=== PATIENT | male | born 2000 | race Caucasian/White ===

== ENCOUNTER 2025-01-19 06:38 | Emergency (ER) | payer OTHER, SELFPAY ==
[2025-01-19] VITALS (8 sets, daily range): BP systolic 118–159; BP diastolic 72–89; PULSE 56–72; RESP 16; TEMP 36.1–36.9; O2SAT 93–98; BMI 36.1
--- NOTE | 2025-01-19 06:44 | DI.RAD.S_ITS ---
PROCEDURE: XR CHEST 1V INDICATIONS: hemoptysis TECHNIQUE: One view of the chest was acquired. COMPARISON: None. FINDINGS: Surgical changes and devices: None. Lungs and pleura: No pleural effusion or pneumothorax. Bronchial wall thickening. Mediastinum: Mediastinal contours appear normal. Heart size is normal. Bones and chest wall: No suspicious bony lesions. Overlying soft tissues appear unremarkable. IMPRESSION: Bronchial wall thickening which can be seen with inflammatory versus infectious bronchiolitis. No consolidative pneumonia. Dictated by: Lenin Landon M.D. on 01/19/2025 at 8:26 Approved by: Lenin Landon M.D. on 01/19/2025 at 8:27
--- NOTE | 2025-01-19 07:20 | PC.NURSE ---
Pt sitting up in [facility]. Appears in NAD.
--- NOTE | 2025-01-19 07:49 | ED_ITS ---
HPI - URI/Sore Throat General Chief Complaint: Upper Respiratory Symptoms Stated Complaint: Coughing up blood this morning Time Seen by Provider: 01/19/25 06:43 Source: patient Mode of arrival: Ambulatory History of Present Illness HPI Narrative: Patient is a 24-year-old male history of hypertension presenting today with hemoptysis. He reports that he has been ill for about the last 10 days body aches fever or chills he has been coughing quite a bit. The last 2 days he overall is feeling better no fever chills no significant shortness of breath. However he cough this morning and noticed some blood streaks it happened a couple of times. Came to the ER. He has not done any traveling but has recently been ill Related Data Allergies Allergy/AdvReac Type Severity Reaction Status Date / Time No Known Drug Allergies Allergy Verified 01/19/25 06:50 Patient History Social History Smoking Status: Never smoker Smoking Status: Never smoker Exam Initial Vital Signs Initial Vital Signs: Vital Signs Pulse Rate 68 01/19/25 06:47 Pulse Oximetry 96 01/19/25 06:47 GENERAL: Alert very well-appearing 24-year-old and in no acute distress. HEENT: Head atraumatic,EOMI, pupils reactive, face symmetric, moist mucous membranes CARDIOVASCULAR: Regular rate and rhythm without murmurs, rubs or gallops. RESPIRATORY: Breath sounds equal bilaterally, no wheezes rales or rhonchi. ABDOMEN: Soft, nontender. Normoactive bowel sounds all 4 quadrants. No guarding or rebound. EXTREMITIES: Normal range of motion, no clubbing or edema. Neurovascularly intact NEUROLOGICAL: Alert and oriented x4.Normal gait and speech. Cranial nerves II through XII grossly intact. SKIN: Warm, dry, no laceration, no petechiae, no rashes or lesions. Course Orders Ordered: ED Orders 01/19/25 06:44 XR chest 1V Stat 01/19/25 06:50 CBC Auto Diff [Complete Blood Count AUTO DIFF] Stat CMP [Comprehensive Metabolic Panel] Stat D Dimer Stat 01/19/25 06:55 Covid-19 + FLU A/B + RSV - PCR Stat Vital Signs Vital signs: Vital Signs - 8 hr 01/19/25 06:47 01/19/25 06:50 01/19/25 07:00 Temperature 97.0 F L Pulse Rate 68 68 60 Respiratory Rate 16 Blood Pressure 159/85 H Pulse Oximetry 96 97 93 Oxygen Delivery Method Room Air 01/19/25 07:28 01/19/25 07:28 01/19/25 07:30 Temperature Pulse Rate 66 58 L Respiratory Rate Blood Pressure 124/78 Pulse Oximetry 95 94 Oxygen Delivery Method Room Air 01/19/25 07:30 01/19/25 08:00 01/19/25 08:00 Temperature Pulse Rate 56 L Respiratory Rate Blood Pressure 118/76 123/72 Pulse Oximetry 94 Oxygen Delivery Method 01/19/25 08:30 01/19/25 08:30 01/19/25 08:39 Temperature 98.4 F Pulse Rate 72 66 Respiratory Rate 16 Blood Pressure 126/75 126/89 Pulse Oximetry 94 98 Oxygen Delivery Method Room Air MDM - URI/Sore Throat Lab Data 01/19/25 06:50 01/19/25 06:50 Labs: Lab Results 01/19/25 01/19/25 Range/Units 06:50 06:55 WBC 10.3 (4.5-11.0) X10^3/uL RBC 4.90 (4.5-5.9) X10^6/uL Hgb 14.7 (13.5-17.5) g/dL Hct 42.4 (41-53) % MCV 86.6 (80-100) fL MCH 29.9 (26-34) PG MCHC 34.6 (30-36) % RDW 12.4 (11.6-14.8) % Plt Count 548 H (150-400) X10^3/uL Neut % (Auto) 55.0 (50-75) % Lymph % (Auto) 29.1 (25-40) % [place] % (Auto) 7.9 (3-14) % Eos % (Auto) 7.1 H (2-4) % Baso % (Auto) 0.9 (0-2) % Neut # (Auto) 5600 (3834-1031) /uL Lymph # (Auto) 3000 (9726-6343) /uL [place] # (Auto) 800 (0-900) /uL Eos # (Auto) 700 H (0-450) /uL Baso # (Auto) 100 (0-100) /uL D-Dimer 424 (<500) ng/ml Sodium 142 (137-145) mmol/L Potassium 4.2 (3.4-5.1) mmol/L Chloride 106 (98-107) mmol/L Carbon Dioxide 25 (22-32) mmol/L BUN 10 (9-20) mg/dL Creatinine 0.80 (0.66-1.25) mg/dL Estimated GFR > 60 (>60) mL/min BUN/Creatinine Ratio 12.5 (6-22) Glucose 103 H (70-99) mg/dL Calcium 9.4 (8.4-10.2) mg/dL Total Bilirubin 0.3 (0.2-1.3) mg/dL AST 42 (17-59) IU/L ALT 33 (<50) IU/L Alkaline Phosphatase 62 (38-126) U/L Total Protein 8.4 H (6.3-8.2) g/dL Albumin 4.4 (3.5-5.0) g/dL Globulin 4.0 (1.7-4.1) g/dL Albumin/Globulin Ratio 1.1 (1.0-2.8) SARS-CoV-2 (PCR) Negative (Negative) Influenza A (RT-PCR) Flu a negative (NEGATIVE) Influenza B (RT-PCR) Flu b negative (NEGATIVE) RSV (PCR) Negative (Negative) Imaging Data Chest x-ray: Radiologist's Impression: PROCEDURE: XR CHEST 1V INDICATIONS: hemoptysis TECHNIQUE: One view of the chest was acquired. COMPARISON: None. FINDINGS: Surgical changes and devices: None. Lungs and pleura: No pleural effusion or pneumothorax. Bronchial wall thickening. Mediastinum: Mediastinal contours appear normal. Heart size is normal. Bones and chest wall: No suspicious bony lesions. Overlying soft tissues appear unremarkable. IMPRESSION: Bronchial wall thickening which can be seen with inflammatory versus infectious bronchiolitis. No consolidative pneumonia. Dictated by: Lenin Landon M.D. on 01/19/2025 at 8:26 MDM Narrative Medical decision making narrative: Patient healthy 24-year-old male history of hypertension presenting today with hemoptysis. Sounds like he has had small amount of streaking hemoptysis. Some upper respiratory like symptoms last week with fever and body aches. Blood work has been reviewed He has no leukocytosis no electrolyte abnormality D-dimer is less than 500 Viral panel is negative Chest x-ray does show some bronchial wall thickening inflammatory versus infectious At this time patient has had clinical improvement he has no leukocytosis do not think needs antibiotics at this time. D-dimer is less than 500 very low suspicion for PE He has had all of his immunizations no exposure to tuberculosis At this time supportive care only Discharge Plan Departure Patient Disposition: Home Clinical Impression: Cough with hemoptysis Instructions: DI for Hemoptysis Activity Restrictions/Additional Instructions: *You have been diagnosed with hemoptysis *What to do: At this time workup in the emergency department is overall reassuring. I suspect that the blood you saw is from coughing so hard. This should self resolve but you may still have a couple blood streaked *Continue to take medications as directed *Follow up with your primary care provider in 2-3 days or call [phone] *Return to ER if you should have handful fulls of blood dizziness lightheadedness [or] any new, worsening or concerning symptoms Referrals: Portia Galarza [Primary Care Provider, Family Practice] Stand Alone Forms: Patient Portal/API
[2025-01-19 07:53] LABS: Influenza A - CEPHEID Flu A NEGATIVE (NEGATIVE); Influenza B - CEPHEID Flu B NEGATIVE (NEGATIVE)
[2025-01-19 07:54] LABS: COVID-19 CEPHEID 4-PLEX PCR Negative (Negative)
[2025-01-19 07:59] LABS: Add Manual Diff / Slide Review NO; Hematocrit 42.4 % (41-53); Hemoglobin 14.7 g/dL (13.5-17.5); Lymphocytes Absolute Auto 3000 /uL (1100-4500); Mean Corpuscular HGB Conc 34.6 % (30-36); Mean Corpuscular Hemoglobin 29.9 PG (26-34); Mean Corpuscular Volume 86.6 fL (80-100); Platelet Count 548 X10^3/uL (150-400)
[2025-01-19 08:04] LABS: Alanine Aminotransferase 33 IU/L (<50); Albumin 4.4 g/dL (3.5-5.0); Albumin Globulin Ratio 1.1 (1.0-2.8); Alkaline Phosphatase 62 U/L (38-126); Blood Urea Nitrogen 10 mg/dL (9-20); Calcium 9.4 mg/dL (8.4-10.2); Carbon Dioxide 25 mmol/L (22-32); Chloride 106 mmol/L (98-107); Estimated Glomerular Filt Rate > 60 mL/min (>60); Globulin 4.0 g/dL (1.7-4.1); Glucose 103 mg/dL (70-99); HEMOLYSIS < 15 (0-50); Potassium 4.2 mmol/L (3.4-5.1); Sodium 142 mmol/L (137-145); Total Protein 8.4 g/dL (6.3-8.2)
== END 2025-01-19 08:43 | disposition home or self-care (01) ==
PROVIDERS: Emergency Medicine; Emergency Provider Emergency Medicine
DX: R04.2 Hemoptysis (principal)
CPT/HCPCS: 71045; 80053; 85025; 85379; 87637; 99282; 99284